=== PATIENT | female | born 1995 | race African-American/Black ===

== ENCOUNTER 2016-09-30 20:18 | Emergency (ER) | payer OTHER ==
[~2016-09-30 20:18] MED LIST: PRENATAL1 TA1 PO; ZOFRAN ODT4 MG PO
[2016-09-30 21:04] LABS: URINE SOURCE CLEAN CATCH
[2016-09-30 21:09] LABS: BASOPHIL% 0.4 % (0-2.5); EOSINOPHIL# 0.2 X10e3 (0-0.7); EOSINOPHIL% 1.7 % (0.0-7.0); HEMATOCRIT 40.6 % (35.0-45.0); HEMOGLOBIN 13.4 gm/dL (12.0-16.0); LYMPHOCYTE# 3.2 X10e3 (1.0-3.5); LYMPHOCYTE% 24.8 % (17.0-45.0); MEAN CORPUSCULAR HEMOGLOBIN 26.8 PG (28-34); MEAN CORPUSCULAR HGB CONC 33.1 g/dL (30-36); MEAN PLATELET VOLUME 8.1 FL (6.5-11.5); MONOCYTE# 0.7 X10e3 (0-1.0); MONOCYTE% 5.3 % (3.0-12.0); NEUTROPHIL# 8.7 X10e3 (1.5-7.1); NEUTROPHIL% 67.8 % (40-75); PLATELET COUNT 295 X10e3 (140-420); RED BLOOD COUNT 5.02 X10e (3.90-5.30); WHITE BLOOD COUNT 12.9 X10e3 (4.0-10.5)
[2016-09-30 21:14] LABS: URINE APPEARANCE CLEAR; URINE BILIRUBIN NEG (NEG); URINE BLOOD TRACE-INTACT (NEG); URINE COLOR YELLOW; URINE GLUCOSE NEG (NORM); URINE KETONE NEG (NEG); URINE LEUKOCYTE ESTERASE NEG (NEG); URINE NITRATE NEG (NEG); URINE PH 5.5 (5-8); URINE PROTEIN NEG (NEG); URINE SPECIFIC GRAVITY >=1.030 (1.003-1.035); URINE UROBILINOGEN 0.2 MG/DL (NORM)
[2016-09-30 21:14] LABS: DIFF IND NO
[2016-09-30 21:15] LABS: MICRO INDICATED? YES
[2016-09-30 21:21] LABS: CULTURE INDICATED? YES; URINE BACTERIA NEG (NEG); URINE RBC 0-2 /[HPF] (0-2); URINE SQUAMOUS EPITHELIAL CELL FEW /[HPF]
[2016-09-30 21:29] LABS: ALBUMIN SERUM 4.5 g/dL (3.5-5.0); ALKALINE PHOSPHATASE 94 U/L (32-92); ALT (SGPT) 28 U/L (10-40); AMYLASE 17 U/L (0-46); AST (SGOT) 21 U/L (10-42); BILIRUBIN,TOTAL 0.3 mg/dL (0.2-2.0); BLOOD UREA NITROGEN 13 mg/dL (9-23); BUN/CREATININE RATIO 18.57; CARBON DIOXIDE 21 mmol/L (22-31); CHLORIDE 107 mmol/L (100-111); CREATININE SERUM 0.7 mg/dL (0.6-1.4); GLOM FILT RATE Estimated 142.5 mL/min (>60); GLUCOSE FASTING 109 mg/dL (70-110); LIPASE 22 U/L (22-51); POTASSIUM 3.5 mmol/L (3.5-5.1); PROTEIN TOTAL SERUM 7.7 g/dL (6.0-8.3); SODIUM 136 mmol/L (135-145)
[2016-09-30 21:32] LABS: BILIRUBIN, DIRECT <0.1 mg/dL (0.0-0.2); BILIRUBIN,INDIRECT 0.2 mg/dL (0.0-0.9)
== END 2016-09-30 22:05 | disposition home or self-care (01) ==
LOC: SED 20:18
PROVIDERS: Nurse Practitioner Family
DX: R10.31 Right lower quadrant pain (principal); R10.32 Left lower quadrant pain; M54.5 Low back pain; F17.210 Nicotine dependence, cigarettes, uncomplicated
CPT/HCPCS: 36415; 80048; 80076; 81003; 82150; 83690; 84703; 85025; 87086; 99284

== ENCOUNTER 2016-10-30 00:03 | Emergency (ER) | payer OTHER ==
--- NOTE | ~2016-10-30 | CT4 ---
[facility] A Service of [facility] RADIOLOGY TEXT RESULTS PATIENT: MONISHA VEGA LOCATION: [facility] : [birth year] UNIT #: [id number] AGE: [address]: Jaydon Hess MD SEX: F ORDER DR: [id number] [facility] [address] [place], [place] [address] [id number] MR#: [id number] Acc #: [id number] NAME: MONISHA VEGA : 1995 SEX: F STUDY DATE/TIME: 10/30/2016 2:36 UNIT: TATI ROOM: STUDY DESCRIPTION: CT Abd and Pelv Wo Cont Attending Physician: Jaydon Hess M.D. Ordering Physician: Pinky James M.D. Primary Care Physician: Tammy Gómez M.D. MEDICAL IMAGING REPORT This report is preliminary unless electronic signature is present EXAM CT abdomen and pelvis about contrast DATE: 10/30/2016 HISTORY Severe left side back and abdominal pain with nausea and vomiting today. COMPARISON None. PROCEDURE 3 mm noncontrast axial images through the abdomen and pelvis. Enteric contrast not administered. Sagittal and coronal reformatted images were obtained. This CT exam was performed with one or more of the following radiation dose reduction techniques: automatic exposure control, adjustment of mA and/or kV according to patient size, and iterative reconstruction. FINDINGS A 3 mm stone is seen at the left ureterovesical junction, there is mild left hydronephrosis and hydroureter. No intrarenal calculi are identified. Lung bases are clear. Liver, gallbladder, spleen, pancreas, adrenals are normal. Normal appendix. Unopacified bowel is within normal limits. PELVIS FINDINGS: Uterus and rectum are normal. IMPRESSION 1. 3 mm stone at the left ureterovesical junction with mild left hydronephrosis and hydroureter. [facility] A Service of [facility] RADIOLOGY TEXT RESULTS PATIENT: MONISHA VEGA LOCATION: [facility] : [birth year] UNIT #: [id number] AGE: [address]: Jaydon Hess MD SEX: F ORDER DR: 2. Normal appendix. Dictated by... Taylor Villarreal M.D. THIS IS AN ELECTRONICALLY VERIFIED REPORT Taylor Villarreal M.D. at 10/30/2016 9:55 PM LINDA/mauro TD: 10/30/2016 05:55 JOB #: [id number] MEDICAL IMAGING REPORT Page 1 of 1 COPY
[2016-10-30 01:39] LABS: BASOPHIL# 0.1 X10e3 (0-0.3); BASOPHIL% 0.3 % (0-2.5); EOSINOPHIL# 0.3 X10e3 (0-0.7); HEMATOCRIT 40.9 % (35.0-45.0); HEMOGLOBIN 13.3 gm/dL (12.0-16.0); LYMPHOCYTE# 2.4 X10e3 (1.0-3.5); LYMPHOCYTE% 16.4 % (17.0-45.0); MEAN CELL VOLUME 81.4 FL (83-96); MEAN CORPUSCULAR HEMOGLOBIN 26.4 PG (28-34); MEAN CORPUSCULAR HGB CONC 32.5 g/dL (30-36); MEAN PLATELET VOLUME 7.8 FL (6.5-11.5); MONOCYTE# 0.9 X10e3 (0-1.0); MONOCYTE% 6.2 % (3.0-12.0); NEUTROPHIL# 11.2 X10e3 (1.5-7.1); NEUTROPHIL% 75.1 % (40-75); PLATELET COUNT 337 X10e3 (140-420); RED BLOOD COUNT 5.03 X10e (3.90-5.30); RED CELL DISTRIBUTION WIDTH 13.2 % (11.0-15.5); WHITE BLOOD COUNT 14.9 X10e3 (4.0-10.5)
[2016-10-30 01:41] LABS: DIFF IND NO
[2016-10-30 02:08] LABS: ALBUMIN SERUM 4.6 g/dL (3.5-5.0); BILIRUBIN, DIRECT 0.1 mg/dL (0.0-0.2); BILIRUBIN,INDIRECT 0.4 mg/dL (0.0-0.9); BILIRUBIN,TOTAL 0.5 mg/dL (0.2-2.0); BUN/CREATININE RATIO 22.22; CALCIUM SERUM 9.5 mg/dL (8.4-10.2); CREATININE SERUM 0.9 mg/dL (0.6-1.4); GLOM FILT RATE Estimated 105.3 mL/min (>60); POTASSIUM 3.6 mmol/L (3.5-5.1); PROTEIN TOTAL SERUM 7.8 g/dL (6.0-8.3)
[2016-10-30 02:29] LABS: URINE SOURCE CLEAN CATCH
[2016-10-30 02:36] LABS: URINE APPEARANCE CLEAR; URINE BILIRUBIN NEG (NEG); URINE BLOOD 2+ (NEG); URINE COLOR YELLOW; URINE GLUCOSE NEG (NEG); URINE KETONE NEG (NEG); URINE LEUKOCYTE ESTERASE TRACE (NEG); URINE NITRATE NEG (NEG); URINE PH 6.5 (5-8); URINE PROTEIN NEG (NEG); URINE SPECIFIC GRAVITY 1.019 (1.003-1.035); URINE UROBILINOGEN 0.2 MG/DL (NEG)
[2016-10-30 02:39] LABS: URINE BACTERIA AUWI NEG (NEGATIVE); URINE SQUAMOUS EPITHELIAL CELL NONE SEEN /[HPF]; UWBCS1 AUWI 0-2 (0-5)
[2016-10-30 02:41] LABS: CULTURE INDICATED? NO
== END 2016-10-30 04:09 | disposition home or self-care (01) ==
LOC: CED 00:03
DX: N13.2 Hydronephrosis with renal and ureteral calculous obstruction (principal); F17.200 Nicotine dependence, unspecified, uncomplicated
CPT/HCPCS: 36415; 74176; 80048; 80076; 81003; 83690; 84703; 85025; 96361; 96374; 96375; 99284; J1170; J2405